=== PATIENT | female | born 1990 | race Caucasian/White ===

== ENCOUNTER → 2017-04-17 | Outpatient (CLI) | payer BC ==
--- NOTE | 2017-04-18 17:38 | KCIC ---
Left breast ultrasound: Reason for examination: Palpable nodule. Ultrasound examination was performed of the left axillary region inferiorly in the area of clinical concern. There is a small 4.3 x 2.7 mm hypoechoic circumscribed lesion probably representing a small lymph node. No other cystic or solid lesions are seen. IMPRESSION: Probable small lymph node low in the left axilla. No suspicious abnormality seen. Recommend 6 month sonographic follow-up. BI-RADS Category 3: Probably Benign. "Our facility is accredited by the [employer] Mammography [employer]." This patient's information has been entered into a reminder system for the patient to be notified with the results of her examination and a target date for the next mammogram. Electronically signed by: Ceci Tiwari MD (04/18/2017 5:35 PM) [id number]
== END | disposition home or self-care (01) ==
LOC: KCIC US 11:11
PROVIDERS: ATTEND Obstetrics & Gynecology
DX: N63 Unspecified lump in breast (principal)
CPT/HCPCS: 76641